=== PATIENT | female | born 1995 | race Caucasian/White ===

== ENCOUNTER 2019-01-13 09:51 | Emergency (ER) | payer OTHER ==
[2019-01-13 10:50] LABS: ADD MAN DIFF? NO
[2019-01-13] MEDS: SOD CHLORIDE 0.9% 1,000 ML IV ×3 (10:50→13:15)
[2019-01-13] MEDS: DIPHENHYDRAMINE 50 MG INJ IV (10:50)
[2019-01-13] MEDS: ONDANSETRON 4 MG INJ IV (10:50)
[2019-01-13] MEDS: KETOROLAC 30 MG INJ IV (10:50)
[2019-01-13 10:52] LABS: WHITE BLOOD COUNT 4.4 10^3/ul (4.8-10.8)
[2019-01-13 10:52] LABS: BASOPHILS % 0.9 % (0.0-2.0); EOSINOPHILS # 0.2 10^3/ul (0.0-0.5); EOSINOPHILS % 3.8 % (0.0-7.0); HEMATOCRIT 36.8 % (37.0-47.0); HEMOGLOBIN 12.2 g/dl (12.0-16.0); LYMPHOCYTES # 1.7 10^3/ul (0.8-2.9); LYMPHOCYTES % 39.1 % (15.0-51.0); MEAN CORPUSCULAR HEMOGLOBIN 31.9 pg (29.0-33.0); MEAN CORPUSCULAR HGB CONC 33.2 g/dl (32.0-37.0); MEAN CORPUSCULAR VOLUME 96.3 fl (82.0-101.0); MEAN PLATELET VOLUME 9.3 fl (7.4-10.4); MONOCYTE # 0.4 10^3/ul (0.3-0.9); MONOCYTES % 8.8 % (0.0-11.0); NEUTROPHIL # 2.1 10^3/ul (1.6-7.5); NEUTROPHILS % 47.2 % (39.0-77.0); PLATELET COUNT 299 10^3/UL (140-415); RED BLOOD COUNT 3.82 10^6/ul (4.20-5.40); RED CELL DISTRIBUTION WIDTH 11.9 % (11.5-14.5)
[2019-01-13 10:56] LABS: ADD UMIC NO; UR ASCORBIC ACID NEGATIVE (NEGATIVE); UR BILIRUBIN (Dip) NEGATIVE (NEGATIVE); UR BLOOD (Dip) NEGATIVE (NEGATIVE); UR CLARITY CLEAR (CLEAR); UR COLOR YELLOW (YELLOW); UR GLUCOSE (Dip) NEGATIVE (NEGATIVE); UR KETONES (Dip) NEGATIVE (NEGATIVE); UR LEUKOCYTE ESTERASE (Dip) NEGATIVE Leu/ul (NEGATIVE); UR NITRITE (Dip) NEGATIVE (NEGATIVE); UR SPECIFIC GRAVITY (Dip) 1.014 (1.003-1.030); UR TOTAL PROTEIN (Dip) NEGATIVE (NEGATIVE); UR UROBILINOGEN (Dip) NEGATIVE (NEGATIVE)
[2019-01-13 11:09] LABS: ALANINE AMINOTRANSFERASE 41 IU/L (13-69); ALBUMIN 4.5 g/dl (3.3-4.9); ALKALINE PHOSPHATASE 66 IU/L (42-121); ANION GAP 6 (5-13); ASPARTATE AMINO TRANSFERASE 26 IU/L (15-46); BILIRUBIN,INDIRECT 0.4 mg/dl (0-1.1); BILIRUBIN,TOTAL 0.4 mg/dl (0.2-1.3); BLOOD UREA NITROGEN 15 mg/dl (7-20); CALCIUM 9.9 mg/dl (8.4-10.2); CARBON DIOXIDE 31 mmol/L (21-31); CHLORIDE 104 mmol/L (97-110); CREATININE 0.58 mg/dl (0.44-1.00); Estimated GFR > 60 mL/min (>60); GLUCOSE 88 mg/dl (70-220); POTASSIUM 4.4 mmol/L (3.5-5.1); SODIUM 141 mmol/L (135-144); TOTAL PROTEIN 7.7 g/dl (6.1-8.1)
[2019-01-13 11:12] LABS: INR 0.91; PROTIME 12.4 Sec (11.9-14.9)
[2019-01-13 11:13] LABS: PARTIAL THROMBOPLASTIN TIME 31.3 Sec (23.0-35.0)
[2019-01-13] MEDS: morphine 4 MG/ML VIAL IV (12:22)
[2019-01-13] MEDS: DEXAMETHASONE 10 MG/ML 1 ML INJ IV (14:09)
[2019-01-13] MEDS: VALPROATE INJ 500 MG in SOD CHLORIDE 0.9% 50 ML IVPB (14:09)
== END 2019-01-13 15:32 | disposition home or self-care (01) ==
LOC: FTE 15:32
DX: R51 Headache (principal); R40.2142 Coma scale, eyes open, spontaneous, at arrival to emergency department; R40.2362 Coma scale, best motor response, obeys commands, at arrival to emergency department; R40.2252 Coma scale, best verbal response, oriented, at arrival to emergency department
CPT/HCPCS: 36415; 70450; 80053; 81003; 81025; 85025; 85610; 85730; 96361; 96365; 96375; 99285-25

== ENCOUNTER 2019-02-15 20:14 | Emergency (ER) | payer MEDICAID ==
[2019-02-15 20:45] LABS: URINE BLOOD (Dip) POC Trace-intact (NEGATIVE); URINE GLUCOSE (Dip) POC Negative (NEGATIVE); URINE KETONES (Dip) POC Negative (NEGATIVE); URINE LEUKOCYTE EST (Dip) POC Negative (NEGATIVE); URINE NITRITE (Dip) POC Negative (NEGATIVE); URINE TOTAL PROTEIN POC 1+ (NEGATIVE)
[2019-02-15 20:45] LABS: URINE PH (Dip) POC 6.5 (5.0-8.5)
== END 2019-02-15 21:05 | disposition home or self-care (01) ==
LOC: E/R 21:05
DX: R56.9 Unspecified convulsions (principal); R40.2142 Coma scale, eyes open, spontaneous, at arrival to emergency department; R40.2362 Coma scale, best motor response, obeys commands, at arrival to emergency department; R40.2252 Coma scale, best verbal response, oriented, at arrival to emergency department
CPT/HCPCS: 81003; 81025; 82962; 99282